=== PATIENT | female | born 1955 | race Caucasian/White ===

== ENCOUNTER 2025-01-24 20:43 | Inpatient (IN) | payer MEDICARE, OTHER, SELFPAY ==
[2025-01-24 15:03] VITALS: BP 165/87
[2025-01-24 15:49] LABS: % Basophils 0.8 % (0-2); % Eosinophils 4.4 % (0-6); % Immature Granulocytes 0.6 % (0-0.5); % Lymphocytes 11.8 % (20.5-51.1); % Monocytes 4.8 % (1.7-9.3); % Neutrophils 77.6 % (42.2-75.2); Absolute Basophils 0.1 10^3/uL (0-0.2); Absolute Eosinophils 0.4 10^3/uL (0-0.7); Absolute Immature Granulocytes 0.1 10^3/uL (0-0.05); Absolute Lymphocytes 0.9 10^3/uL (1.2-3.4); Absolute Monocytes 0.4 10^3/uL (0.1-0.6); Absolute Neutrophils 6.2 10^3/uL (1.4-6.5); Hematocrit 46.3 % (37.0-47.0); Hemoglobin 14.8 g/dL (12.0-16.0); Mean Corpuscular Hgb 29.7 pg (27.0-31.0); Nucleated Red Blood Cells % 0 %; Platelet Count 230 10^3/uL (130-400); Red Blood Cell Count 4.98 10^6/uL (4.20-5.40); Red Cell Dist. Width 14.3 % (11.5-14.5)
[2025-01-24 16:01] LABS: Urine Albumin 3+ (Neg - Trace); Urine Bilirubin 1+ (Negative); Urine Character Slightly Cloudy (Clear); Urine Color Yellow; Urine Glucose Negative (Negative); Urine Ketone Negative (Negative); Urine Leukocyte 3+ (Negative); Urine Nitrite Positive (Negative); Urine Occult Blood 4+ (Negative); Urine Urobilinogen 1+ (Neg - 1+)
[2025-01-24 16:07] LABS: ALT (SGPT) 46 U/L (0-35); AST (SGOT) 26 U/L (14-36); Albumin 3.5 g/dl (3.5-5.0); Alkaline Phosphatase 82 U/L (38-126); Blood Urea Nitrogen 40 mg/dl (7-17); Calcium 10.4 mg/dl (8.4-10.2); Carbon Dioxide 31 mmol/L (22-30); Chloride 101 mmol/L (98-107); Glucose 102 mg/dl (70-99); Lipase 114 U/L (23-300); Sodium 136 mmol/L (135-145); Total Bilirubin 0.5 mg/dl (0.2-1.3); eGFR 40.47
--- NOTE | 2025-01-24 17:25 | ED.GENMED ---
History of Present Illness
General
Chief Complaint: Abdominal Pain
Source: patient
Exam Limitations: none
Time Seen by Provider: 01/24/25 17:24
Nursing documentation reviewed up to this point in time: agreed with
History of Present Illness
History of Present Illness:
69-year-old female presents emergency room complaining of left flank pain and left-sided abdominal pain. Started at 1 PM today. She has been urinating less. She also notes she has had some nausea and some chills since 01/20/2025.
Past History
Past History
ED Past Medical History: Asthma, HTN and Other (Glaucoma)
Social History
Tobacco: Smoker
Alcohol: None
Drug: None
Review of Systems
Review of Systems
Allergies reviewed?: Yes
All Other Systems: Not applicable
Constitutional: Reports chills
EENT: Reports no symptoms
Respiratory: Reports no symptoms
Cardiac: Reports no symptoms
ABD/GI: Reports no symptoms
: Reports no symptoms
Musculoskeletal: Reports no symptoms
Skin: Reports no symptoms
Neurological: Reports no symptoms
Endocrine: Reports no symptoms
Hematologic/Lymphatic: Reports no symptoms
Psychiatric: Reports no symptoms
Phy Exam
Physical Exam
Physical Exam:
Physical Exam
General: no apparent distress, not acutely ill
Neck: supple. no meningeal signs. normal posterior pharynx
Heart: s1/s2 regular rate and rhythm, no murmur. equal radial
pulses.
HEENT: Pupils equal round reactive to light, EOMI
Lungs: no acute respiratory distress. clear bilaterally
Abdomen: normal bowel sounds. not tender. Mild left CVAT
Neuro: alert and oriented. no focal neurological deficits cranial nerves II through XII intact
Skin: no rash
Psychiatric: well kept. interactive and cooperative
Extremities: no edema. no calf tenderness. negative homans. good distal pulses
Course
Orders/Labs/Results
Orders:
Orders
01/24/25 Dinner
NPO
Allow oral meds: Yes
Allow clear liquids: Sips of Clears
NPO
Allow oral meds: No
Allow clear liquids: No
NPO with Ice Chips: No
01/24/25 15:08
Electrocardiogram (*1) Urgent
Reason for Study: Chest Pain
EKG- Treatment ONCE
01/24/25 15:35
Complete Blood Count/With Diff Urgent
Comprehensive Metabolic Panel Urgent
Lipase Urgent
Urinalysis Reflex To Culture Urgent
Date Specimen was Collected: 01/24/25
Time Specimen was Collected: 15:08
Urine Microscopic Reflex Cult Urgent
Urine Culture Urgent
KAREN Source: U
Specimen Description:
Date Specimen was Collected: 01/24/25
Time Specimen was Collected: 15:08
01/24/25 17:35
CT Abd/pel Without Iv Or Oral Urgent
Comment:
Reason For Exam: left flank pain, UTI, hematuria
01/24/25 19:10
Ondansetron Injectable [Zofran] 4 mg .ROUTE .STK-MED ONE
01/24/25 19:11
Morphine Sulfate 4 mg .ROUTE .STK-MED ONE
01/24/25 19:16
Ondansetron Injectable [Zofran] 4 mg IV NOW STA
01/24/25 19:17
Morphine Sulfate 4 mg IV NOW STA
01/24/25 19:25
CefTRIAXone [Rocephin] 1,000 mg IV NOW STA
01/24/25 19:28
Morphine Sulfate 2 mg .ROUTE .STK-MED ONE
01/24/25 19:30
Morphine Sulfate 1 mg IV NOW STA
01/24/25 20:09
0.9% Sodium Chloride 1000 ml [Nss] 1,000 ml IV BOLUS
01/24/25 20:14
Admit/Transfer Patient As Directed
Co-Sign Provider:
Level of Care: Inpatient admission
Assign to:: Medical/Surgical
Physician / Group: gamal
Diagnosis: obstructive ureteral stone
Reason for Hospitalization: obstructive ureteral stone
Expected length of stay greater than two midnights?: Yes
ELOS- Estimated Length of Stay in days: 2
I certify the patient meets the requirements for IP care: Yes
Code Status As Directed
Resuscitation Status: Full Code
PRN Pain Medication Management As Directed
May give lesser potent ordered pain med per pt: Yes
preference::
Protocol:: Medication orders for pain may be administered in a
manner that supports deferring to patient preference
when the pt is:
- Requesting an ordered lesser potent pain medication.
Least to most potent pain medications are defined
as: acetaminophen < NSAID < tramadol < opioids
(morphine, oxycodone, hydromorphone).
- Requesting a lesser dose of the same medication IF
ORDERED.
- Requesting a less intrusive route of administration
if both routes are prescribed by the provider (PO <
IV).
01/24/25 20:30
Acetaminophen [Tylenol] 650 mg PO NOW STA
01/24/25 21:37
0.9% Sodium Chloride 1000 ml [Nss] 1,000 ml IV 100 mls/hr
Acetaminophen [Tylenol] 650 mg PO Q4HPRN PRN
HYDROmorphone [Dilaudid] 0.5 mg IV Q4HPRN PRN
Ondansetron Injectable [Zofran] 4 mg IV Q6HPRN PRN
01/24/25 21:37
UROLOGY CONSULT Routine
Consulting Provider: Landon Benitez Jr.
Was physician already notified: Yes
Activity As Directed
Activity Level: As Tolerated
Pneumatic Compression Sleeves As Directed
Type: Knee high
Vital Signs As Directed
Frequency: Per unit guidelines
DX Deep Vein Thrombosis Video Routine
01/24/25 22:00
CefTRIAXone [Rocephin] 1,000 mg IV Q24H
01/25/25 06:00
Complete Blood Count/With Diff IN AM
Comprehensive Metabolic Panel IN AM
Abnormal Lab Results
01/24/25
15:35
MCHC 32.0 L g/dL
(33.0-37.0)
MPV 11.0 H fL
(7.4-10.4)
Abs Immat Gran (auto) 0.1 H 10^3/uL
(0-0.05)
Absolute Lymphs (auto) 0.9 L 10^3/uL
(1.2-3.4)
Immature Gran % 0.6 H %
(0-0.5)
Neutrophils % 77.6 H %
(42.2-75.2)
Lymphocytes % 11.8 L %
(20.5-51.1)
Carbon Dioxide 31 H mmol/L
(22-30)
BUN 40 H mg/dl
(7-17)
Creatinine 1.4 H mg/dL
(0.6-1.0)
Glucose 102 H mg/dl
(70-99)
Calcium 10.4 H mg/dl
(8.4-10.2)
ALT 46 H U/L
(0-35)
Total Protein 6.0 L g/dl
(6.3-8.2)
Ur Occult Blood Reflex 4+ A
(Negative)
Urine Nitrite (Reflex) Positive A
(Negative)
Urine Bilirubin 1+ A
(Negative)
Leukocyte Esterase Rfl 3+ A
(Negative)
Urine RBC 7-10 A /HPF
(0-2)
Urine WBC (Reflex) >100 A /HPF
(0-5)
Urine Bacteria (Reflex) Many A
(Negative)
Urine Albumin (Reflex) 3+ A
(Neg - Trace)
01/24/25 15:35
01/24/25 15:35
Vital Signs
Initial and Last Documented VS:
Initial Vital Signs
Temp Pulse Resp BP Pulse Ox
97.6 F 76 16 165/87 99
01/24/25 15:03 01/24/25 15:03 01/24/25 15:03 01/24/25 15:03 01/24/25 15:03
Last Documented Vital Signs
Temp Pulse Resp BP Pulse Ox
102.0 F H 103 20 145/73 99
01/24/25 20:26 01/24/25 20:17 01/24/25 20:17 01/24/25 20:17 01/24/25 15:03
MDM/Problems Addressed
Differential Diagnosis Includes:
UTI, kidney stone
MDM/Problems Addressed:
69-year-old female with obstructive left-sided proximal ureteral calculus and UTI. Fever. Discussed with Dr. Benitez, who will take patient to the OR. IV gentamicin and Rocephin given.
Chronic conditions affecting care: HTN and Asthma
*Radiology
Radiology exam reviewed: preliminary read by ED provider (CT abdomen pelvis shows left proximal UVJ calculus 1.5 cm, cyst versus mass left kidney)
*Pulse Oximetry
Patient hypoxic: no
*EKG
Interpreted by ED Provider?: Yes
EKG Intrepretation Date: 01/24/25
EKG Intrepretation Time: 15:21
Interpretation: normal
Comparison EKG: no comparison EKG present
Heart Rate: 72
Rate: normal
Rhythm: sinus
[place]: normal axis
Interval: normal interval
QRS Pattern: normal QRS
Ischemia: no ischemia
*Protozoologist Interpretation
Rate: normal
Interpretation: normal
Heart Rate: 75
Rhythm: sinus
*Critical Care Note
Total Time (30-74mins, 75-104mins- exclusive of procedures): 30
comment:
Critical care statement: A total of 30 minutes of critical care time was provided for this patient. This includes management of unstable vital signs, evaluation of the patient at bedside, reviewing the patient's pertinent medical records, discussion
with consultants, review of old EKGs and review of pertinent medical records. This time with separate from time utilized to perform the aforementioned documented procedures
Patient Management
Social determinants of health affecting care: Living situation, Substance abuse (Tobacco) and Strong social support
Discussion with other providers: Hospitalist and Gsa Coordinator (Urology, Dr. Benitez to take the OR)
Escalation/DeEscalation of care consider admission/obs:
Urgent need for OR for stent
ED Attending Note
-
Portions of this chart may have been created with voice recognition software.� Occasional wrong word or��sound alike� substitutions may have occurred due to the inherent limitations of voice recognition software.
Discharge Plan
Departure
Patient Disposition: OR
Date of Disposition: 01/24/25
Time of Disposition: 20:04
Admit to: OR
Presentation/result/management discussed w/ accepting MD/DO: Hospitalist
Condition: Good
Discharge Problem:
Calculus of proximal left ureter, Acute UTI
Interventions
Interventions:
*Risk Screen - Suicide Last Done: 01/24/25 15:03
*General Assessment Last Done: 01/24/25 19:15
*Neglect/Abuse Screening Last Done: 01/24/25 15:03
ED- Fall Risk Assessment Last Done: 01/24/25 19:34
*ED COVID-19 Vaccine History Last Done: 01/24/25 19:15
JK-Zrpval-Awprsztfui Assessment Last Done: 01/24/25 19:34
[2025-01-24 18:00] VITALS: BP 154/79
[2025-01-24 19:01] LABS: Urine Bacteria Many (Negative); Urine White Cell >100 /HPF (0-5)
[2025-01-24 19:15] VITALS: BMI 36.3
[2025-01-24] MEDS: ZOFRAN 4 MG IV (19:16)
[2025-01-24] MEDS: ROCEPHIN 1000 MG IV (20:05)
[2025-01-24] MEDS: MORPHINE SULFATE 1 MG IV (20:06)
[2025-01-24 20:17] VITALS: BP 145/73
--- NOTE | 2025-01-24 20:19 | HPS.HSE ---
Family Physician
-
Family Physician: Petrona Costa
Chief Complaint
-
left flank pain
History of Present Illness
69-year-old female past medical history of hypertension, COPD, active smoker, presenting with left-sided flank pain, chills, low-grade fever, urinary frequency over the past 5 days. No blood in the urine. No nausea or vomiting. Pain got
particularly severe today.
Denies any prior history of kidney stones urinary tract infections.
Smokes 2 pack of cigarettes per week. Denies alcohol.
Medical History
Past Medical History
Past Medical History: Reports Other ( hypertension, COPD, active smoker,)
Past Surgical History: Reports None
Social History
Tobacco: Smoker
Alcohol: None
Drug: None
Family History
Family History: Not pertinent
Allergies / Home Medications
Allergies reflects when Allergies were last updated in [facility].
Home Medications with original date entered in [facility]
Allergy/Medication List:
Allergies
Allergy/AdvReac Type Severity Reaction Status Date / Time
No Known Allergies Allergy Unverified 01/24/25 15:03
Review of Systems
-
History Source: Patient
A 12 point ROS was completed and negative except as noted: Yes
Constitutional: Reports No Symptoms
EENT: Reports No Symptoms
Respiratory: Reports No Symptoms
Cardiac: Reports No Symptoms
Abdomen/GI: Reports See HPI
: Reports See HPI
Musculoskeletal: Reports No Symptoms
Skin: Reports No Symptoms
Neurological: Reports No Symptoms
Endocrine: Reports No Symptoms
Hematologic/Lymphatic: Reports No Symptoms
Psych: Reports No Symptoms
Physical Exam
Vital Signs
Vital Signs
Temp Pulse Resp BP Pulse Ox
97.6 F 71 16 154/79 99
01/24/25 15:03 01/24/25 18:00 01/24/25 15:03 01/24/25 18:00 01/24/25 15:03
Physical Exam
General: Well Developed, Well Nourished and No Apparent Distress
HEENT: NormoCephalic, Moist mucous membranes and Atraumatic
Respiratory: Clear
Cardiac: S1/S2 and Regular Rhythm; No Murmur or Rub
GI: Soft, Non Tender, Non Distended, Normal Bowel Sounds and Tender (left flank tender ); No Organomegaly
Rectal: Deferred by Provider
Musculoskeletal: No Clubbing, No Cyanosis and No Edema
Skin: No Rash
Neuro: Nonfocal/grossly intact
Laboratory Results
-
01/24/25 15:35
01/24/25 15:35
Laboratory Results
Total Bilirubin 0.5 mg/dl (0.2-1.3) 01/24/25 15:35
AST 26 U/L (14-36) 01/24/25 15:35
ALT 46 U/L (0-35) H 01/24/25 15:35
Alkaline Phosphatase 82 U/L (38-126) 01/24/25 15:35
Lipase 114 U/L (23-300) 01/24/25 15:35
Data Reviewed
-
Lab Data: Labs Reviewed by me
Old Records: Reviewed
Impression/Plan
-
IMPRESSION:
PLAN:
# Obstructive left ureteral stone/pyelonephritis
-1.5 cm ureteropelvic junction stone with moderate right perinephric edema
-Urinalysis indicative of infection
-N.p.o.
-IV fluids
-Ceftriaxone
-Gentamicin dose given
-Dilaudid
-Urology to see urgently
# Acute kidney
-IV fluids
Essential hypertension
-Hold olmesartan/hydrochlorothiazide
COPD
-Continue Breo
Active smoker
Full code
DVT prophylaxis�SCDs
N.p.o.
[2025-01-24] MEDS: TYLENOL 650 MG PO (20:40)
[2025-01-24] MEDS: NSS 1000 IV ×2 (20:40→23:59)
--- NOTE | 2025-01-24 20:55 | CON.MD ---
Consultation - Medical
-
see dictated note
pt presents with abd pain/obstructing left upj stone and fever
reviewed with pt and family
to OR bob for stent placement
risks, benefits, alternatives and disabilities reviewed
[2025-01-24 21:52] VITALS: BP 170/110
[2025-01-24] MEDS: GENTAMICIN 53 MG IV (21:54)
[2025-01-24 22:21] VITALS: BMI 35.9
--- NOTE | 2025-01-24 23:17 | W.IMMPOSTOP ---
Surgical Immed Post Op Note
-
Primary Surgeon:
chas
Assisting Surgeon:
Pre-op Diagnosis:
left ureteral stone/sepsis
Post-op Diagnosis:
same
Procedure Performed:
cysto/left ureteral stent
Anesthesia Type:
gen
Specimen / Cultures:
none
Estimated Blood Loss:
2cc
Complications:
none
Operative Findings:
left ureteral stent placed with roge pus
pt unable to be extubated- to ICU
updated family and med team
[2025-01-24 23:33] VITALS: BP 133/71
[2025-01-24 23:45] VITALS: BP 171/86
[2025-01-24] MEDS: SUBLIMAZE 100 MCG IV (23:59)
[2025-01-25] VITALS (13 sets, daily range): BP systolic 78–129; BP diastolic 50–69; PULSE 2–86; BMI 36.0
[2025-01-25] MEDS: SUBLIMAZE 100 IV (00:02)
[2025-01-25] MEDS: DUONEB 3 ML INH ×4 (00:14→19:50)
[2025-01-25] MEDS: OFIRMEV 100 IV ×2 (00:17→10:24)
--- NOTE | 2025-01-25 00:20 | W.PN.SEPSIS ---
Sepsis
Vital Signs
Temp Pulse Resp BP Pulse Ox
101.9 F H 99 18 170/110 91
01/24/25 21:52 01/24/25 21:52 01/24/25 21:52 01/24/25 21:52 01/24/25 21:52
Physical Exam
Physical Exam:
A focused exam was performed after fluid resuscitation.
Capillary Refill
Bilateral Upper Extremity:
[place] Time: Less than 3 sec
Bilateral Lower Extremity:
[place] Time: Less than 3 sec
Pulse Evaluation
Bilateral Radial:
Pulse Evaluation: Present
Bilateral Dorsalis Pedis:
Pulse Evaluation: Present
[2025-01-25 00:29] LABS: B.E. -1.8 mmol/L; HCO3 24.7 mmol/L (21-28); PCO2 48 mmHg (32-35); PO2 399 mmHg (83-108); pH 7.32 (7.35-7.45)
[2025-01-25 00:30] LABS: O2 Therapy VENT
[2025-01-25] MEDS: NSS 1000 IV ×4 (00:50→21:05)
[2025-01-25] MEDS: SUBLIMAZE 50 MCG IV (00:56)
--- NOTE | 2025-01-25 00:59 | PTCARENOTE ---
Received pt. from OR as a direct back.
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
Upon arrival to ICU, not pulling volumes, settings adjusted to PCMV, tolerating well.
Arroyo CX, CXR completed, Art line placed.
See sedation gtt --> flowsheet.
Uptitrating norepi.
Family bedside all questions answered. Plan of care explained.
[2025-01-25 01:55] LABS: Phosphorus 3.8 mg/dl (2.5-4.5); Triglycerides 169 mg/dl (10-149)
--- NOTE | 2025-01-25 02:11 | PTCARENOTE ---
Pt. belongings placed in closet, Daughter took home pt. stefanoet. Phone left in belongings bag.
[2025-01-25] MEDS: ATIVAN 2 MG IV (02:48)
[2025-01-25 02:58] LABS: Magnesium 1.6 mg/dl (1.6-2.3)
[2025-01-25 03:52] LABS: COVID-19 Antigen Negative (Negative)
--- NOTE | 2025-01-25 04:05 | PTCARENOTE ---
unable to titrate down norepi, Tolerating vent well.
No further change in assessment.
[2025-01-25 05:08] LABS: B.E. -4.3 mmol/L; HCO3 18.8 mmol/L (21-28); O2 Saturation % 99.8 % (94-98); PCO2 29 mmHg (32-35); PO2 140 mmHg (83-108); pH 7.42 (7.35-7.45)
[2025-01-25 05:09] LABS: O2 Therapy VENT
[2025-01-25 05:24] LABS: INR 1.05
[2025-01-25 05:25] LABS: APTT 33.7 Sec (23.4-35.0)
[2025-01-25] MEDS: DIPRIVAN 100 IV ×3 (05:34→08:57)
[2025-01-25] MEDS: LEVOPHED 250 IV (05:34)
--- NOTE | 2025-01-25 05:46 | W.PN.URO.CBU ---
Today's Communication / Plan
-
ICU care
Assessment / Plan
-
obstructing left ureteral stone and sepsis
unable to extubate post op
remains critically ill
continue antibx and supportive care
await cx results
wean vent as able
Diagnosis
-
Date of Service: January 25, 2025
-
Patient Diagnosis:
obstructing left ureteral stone and sepsis
Post Op Day:
left ureteral stent 01/24
Subjective
-
pt remains intubated
febrile
on levo
Objective
-
Vital Signs
Temp Pulse Resp BP Pulse Ox
100.7 F H 76 24 121/59 98
01/25/25 03:15 01/25/25 03:32 01/25/25 03:32 01/25/25 01:15 01/25/25 04:00
Intake and Output
01/23/25 01/24/25 01/25/25
06:59 06:59 06:59
Intake Total 3666.5 / 3666.5
Output Total 520 / 520
Balance 3146.5 / 3146.5
Intake:
Oral fluids 0 / 0
IV fluids (Total) 666.5 / 666.5
Diprivan 85 / 85
Fentanyl 17.5 / 17.5
Norepi 164 / 164
Nss 1,000 ml @ 100 mls/hr IV . 400 / 400
Q10H ZOYA Rx#:[id number]
IV piggybacks 3000 / 3000
Output:
Urine, Downs 520 / 520
Review of Systems
-
Unable to obtain full review of systems at this time due to: Patient Intubation
Physical Exam
-
General - intubated
Abdomen - soft, non-tender
Genitalia - downs in place
[2025-01-25 06:09] LABS: ALT (SGPT) 54 U/L (0-35); AST (SGOT) 31 U/L (14-36); Alkaline Phosphatase 98 U/L (38-126); Blood Urea Nitrogen 33 mg/dl (7-17); Carbon Dioxide 18 mmol/L (22-30); Chloride 106 mmol/L (98-107); Estimated Creatinine Clearance 39 ml/min; Glucose 232 mg/dl (70-99); Magnesium 1.6 mg/dl (1.6-2.3); Potassium 4.3 mmol/L (3.5-5.1); Sodium 134 mmol/L (135-145); Total Bilirubin 1.1 mg/dl (0.2-1.3); Total Protein 5.3 g/dl (6.3-8.2); eGFR 40.47
[2025-01-25 06:19] LABS: Hemoglobin 13.4 g/dL (12.0-16.0); Mean Corp Hgb Conc. 32.7 g/dL (33.0-37.0); Mean Corpuscular Hgb 29.3 pg (27.0-31.0); Mean Corpuscular Volume 89.7 fL (81.0-99.0); Mean Platelet Volume 11.3 fL (7.4-10.4); Platelet Count 294 10^3/uL (130-400); Red Blood Cell Count 4.57 10^6/uL (4.20-5.40); Red Cell Dist. Width 14.6 % (11.5-14.5); White Blood Cell Count 27.7 10^3/uL (4.8-10.8)
--- NOTE | 2025-01-25 07:30 | PTCARENOTE ---
Received patient from table games shift manager. patient is intubated/sedated, RASS is -3, will decrease sedation medications. patient is restrained, bilateral wrist restraints, does attempt to reach towards ETT when aroused, otherwise not following any
commands. She has a #7ETT, ag 23cm at lip, no subglottic suction tube, oral secretions suctioned. oxygen saturation 99%. coarse breath sounds auscultated. She is sinus nilda/sinus rhythm on monitor. levophed gtt at 4mcg, radial A-Line
correlating with cuff pressure for MAP>65. Patient is NPO, has downs catheter without urimeter. SKin is intact. Propofol, and fentanyl as charted. Will review orders, maintaining safe environment.
[2025-01-25 07:54] LABS: % Basophils 0.3 % (0-2); % Lymphocytes 3.7 % (20.5-51.1); % Monocytes 6.4 % (1.7-9.3); % Neutrophils 88.6 % (42.2-75.2); Absolute Basophils 0.1 10^3/uL (0-0.2); Absolute Immature Granulocytes 0.3 10^3/uL (0-0.05); Absolute Monocytes 1.8 10^3/uL (0.1-0.6); Absolute Neutrophils 24.5 10^3/uL (1.4-6.5); Nucleated Red Blood Cells % 0 %
--- NOTE | 2025-01-25 09:11 | CON.HOSP ---
Consultation
-
Date/Time Consultation Requested: 01/25/25
Date/Time Consultation Performed: 01/25/25
Family Physician
-
Family Physician: Petrona Costa
Chief Complaint
-
Septic shock requiring pressors and intubation
History of Present Illness
Patient is a 69-year-old female active smoker with past medical history significant for COPD, hypertension, hyperlipidemia and obesity who presented to the ED complaining of left flank pain x1 day, reduced urinary output, nausea and chills x5 days.
In the ED, UA was suggestive of infection, creatinine 1.4, wbc normal. Abdomen/pelvis CT showed moderate acute left hydronephrosis secondary to a large 1.5 cm obstructing calculus in the left ureteropelvic junction, and severe left perinephric
inflammation. Patient was given ceftriaxone, 1 L normal saline, Zofran morphine. Patient spiked a fever of 102 F while in the ED and was SIRS positive at that time. Urology was consulted and patient was taken to the OR for left ureteral stent
placement (01/24/2025). Patient went into respiratory distress before start of anesthesia, and septic shock intraoperatively requiring vasopressor support. Postop, she was kept intubated and transferred to the ICU for further management.
Patient follows with with her primary care physician in [place] for her COPD and uses Breo Ellipta at home daily.
Medical History
Past Medical History
Past Medical History: Reports COPD, HTN and Hypercholesterolemia
Additional Past Medical History:
Obesity
Past Surgical History: Reports None
Social History
Unable to obtain full social history at this time due to: Patient Intubation
Tobacco: Smoker (2 packs of cigarettes per week)
Personal:
Living: With Family
Allergies / Home Medications
Allergies reflects when Allergies were last updated in [facility].
Home Medications with original date entered in [facility]
Allergy/Medication List:
Allergies
Allergy/AdvReac Type Severity Reaction Status Date / Time
No Known Allergies Allergy Unverified 01/24/25 15:03
Home Medications
fluticasone furoate 200 mcg-vilanterol 25 mcg/dose inhalation powder (Breo Ellipta) 1 inh inhalation DAILY 01/24/25
olmesartan 40 mg-hydrochlorothiazide 25 mg tablet 1 tab PO DAILY 01/24/25
rosuvastatin 10 mg tablet 10 mg PO HS 01/24/25
Review of Systems
-
Unable to obtain full review of systems at this time due to: Patient Intubation
History Source: Family and Physician
Physical Exam
Vital Signs
Vital Signs
Temp Pulse Resp BP Pulse Ox
97.7 F 60 24 121/59 98
01/25/25 07:23 01/25/25 07:45 01/25/25 07:45 01/25/25 01:15 01/25/25 08:10
Physical Exam
General: Well Developed, Well Nourished, No Apparent Distress, Comfortable, Fever (n) and Intubated
HEENT: Normocephalic and Other (Mechanically ventilated)
Respiratory: Clear and Non Labored Respirations
Cardiac: S1/S2, Regular Rhythm, Murmur (n), Peripheral Edema and JVD (n)
GI: Soft, Non Tender, Non Distended and Normal Bowel Sounds
Musculoskeletal: No Clubbing, No Cyanosis and Edema (Pitting edema on bilateral lower extremities, right greater than left)
Skin: Warm
Neuro: Sedated
Psych: Calm
Laboratory Results
-
Laboratory Results
01/25/25 05:00
01/25/25 05:00
PT 14.0 Sec (11.4-14.6) 01/25/25 05:00
INR 1.05 01/25/25 05:00
APTT 33.7 Sec (23.4-35.0) 01/25/25 05:00
pH 7.42 (7.35-7.45) 01/25/25 05:00
pCO2 29 mmHg (32-35) L 01/25/25 05:00
pO2 140 mmHg (83-108) H 01/25/25 05:00
HCO3 18.8 mmol/L (21-28) L 01/25/25 05:00
Total Bilirubin 1.1 mg/dl (0.2-1.3) 01/25/25 05:00
AST 31 U/L (14-36) 01/25/25 05:00
ALT 54 U/L (0-35) H 01/25/25 05:00
Alkaline Phosphatase 98 U/L (38-126) 01/25/25 05:00
Lipase 114 U/L (23-300) 01/24/25 15:35
Data Reviewed
-
Diagnostic Radiology: Image personally visualized and interpreted and Report Reviewed by Me
CT Scan: Image personally visualized and interpreted and Report Reviewed by Me
Lab Data: Labs Reviewed
Impression / Plan
-
IMPRESSION:
69-year-old active smoker female with past medical history of COPD, hypertension, hyperlipidemia, obesity presenting with complicated UTI and left UPJ calculus status post left stent placement, with septic shock requiring pressor support and
intubation.
# Septic shock
- Likely secondary to complicated UTI. Patient was started on ceftriaxone in the ED. Urine culture and blood culture are pending.
- Patient required pressor support intraoperatively and was kept intubated postop. Currently, she is on 2 mcg Levophed. Pressures are stable with MAPs consistently greater than 75.
- Ventilator settings: PEEP 5, FiO2 40%, rate 24. Patient looks comfortable and is satting in the high 90s.
- Abdomen pelvic CT (01/24/2025):
Moderate acute left hydronephrosis secondary to a large 1.5 cm obstructing calculus at the left ureteropelvic junction. Severe left perinephric inflammation.
Mild to moderate right perinephric edema. 1.0 cm mass in the posterior cortex of the midpole of the right kidney which could be a complex cyst or small renal cell carcinoma.
- Patient should follow-up outpatient with nephrology for right kidney mass.
# Hyperglycemia
- Likely steroid-induced
- Patient does not have a known history of diabetes.
# Leukocytosis
- Probably in the setting of sepsis and steroids
#Hypomagnesemia
# MEGHAN
- Creatinine 1.4 in the ED.
- Likely due to postrenal obstruction.
Conditions present prior to admission:
Hypertension -- Home meds currently on hold
Hyperlipidemia
Obesity
COPD
PLAN:
Sedated on fentanyl and propofol. Does not currently follow commands. Will try SAT today.
Patient is not complaining of any pain. As needed Tylenol is ordered.
Patient is intubated and mechanically ventilated. ABG 7.40 /140/18.8. FiO2 40%, PEEP 5. O2 sats >98%. Will try SBT and if tolerating, extubation today. Maintain SpO2 >92%.
Patient has a history of COPD. Lungs clear, continue DuoNebs. Chest x-ray today showed mild left basilar atelectasis versus pneumonia.
Hemodynamically stable, on low-dose Levophed. Wean pressors as able.
Patient has a history of hypertension, home meds are on hold.
Diet is n.p.o. Can consider advancing diet later today if extubated. Continue IV fluids for now.
Creatinine is elevated at 1.4 (baseline unclear). Urine output is low (600 cc). Burgess in place, status post left stent placement, continue to monitor I/O's, weight.
Replete magnesium as needed.
Patient is on IV ceftriaxone for pyelonephritis. Urine culture and blood culture pending.
White count is elevated at 27.7. Patient received dexamethasone in the OR yesterday. Continue to monitor counts.
DVT prophylaxis heparin SQ every 8.
Hyperglycemia, likely steroid-induced. Will start sliding scale insulin. Check HbA1c and Accu-Cheks every 6 hours. Maintain euglycemia with goal BG 140-180.
Patient's family at the bedside. Discussed treatment plans and answered all questions.
--- NOTE | 2025-01-25 09:46 | W.PN.HOSP.TC ---
Today's Communication/Plan
-
Possible transfer out of ICU today
Assessment / Plan
Assessment / Plan
HPI: 69-year-old female past medical history of hypertension, COPD, active smoker, presenting with left-sided flank pain, chills, low-grade fever, urinary frequency over the past 5 days. No blood in the urine. No nausea or vomiting. Pain got
particularly severe today.
#Acute left ureterolithiasis with obstruction
#Sepsis secondary to acute left pyelonephritis
Appreciate urology input, status post cystoscopy with left ureteral stent placement 01/24
Continue Rocephin, follow-up on cultures, trend fever and white count
#Unable to extubate postoperatively
Appreciate mounter saxophones input, extubated 01/25
Patient likely has undiagnosed COPD, KATELYN, and possibly OHS
Continue bronchodilators, follow-up with pulmonology in the office for PFTs and sleep study
#Glucose intolerance
Hemoglobin A1c 5.9, recommend dietary modification
#Cigarette nicotine dependency
Nicotine patch
#Essential hypertension
Hold home blood pressure medications, patient is normotensive
#Hyperlipidemia
Resume statin
DVT prophylaxis�subcu Lovenox
Full code
Updated family at bedside 01/25
Total time spent to see the patient on the floor, examine the patient, review data and lab results, discuss treatment plan with patient, nursing staff around 51 minutes.
Physical Exam
General: Obese, no acute distress
HEENT: Normocephalic, Atraumatic, EOMI, MMM
Respiratory: Clear to Auscultation bilaterally
Cardiac: Normal S1/S2, Regular Rate and Rhythm
GI: Soft, Nontender, Nondistended, Normal Bowel Sounds
Extremities: No Clubbing, Cyanosis, or Edema
Neuro: Nonfocal/Grossly Intact
Psych: Calm, Cooperative
Derm: No Visible lesions
Anticipated Discharge: 24 - 48 hours
Subjective/Interval History
-
Date of Service: January 25, 2025
Patient denies pain. Denies shortness of breath. Fever improved. No vomiting.
Objective Data
-
Labs:
Laboratory Results
01/24/25 01/25/25 01/25/25
23:19 00:07 05:00
WBC 27.7 H
Hgb 13.4
Hct 41.0
Plt Count 294 D
PT 14.0
INR 1.05
APTT 33.7
HCO3 Cancelled 24.7 18.8 L
Sodium 134 L
Potassium 4.3
Chloride 106
Carbon Dioxide 18 L
BUN 33 H
Creatinine 1.4 H
Glucose 232 H
Calcium 9.0
Total Bilirubin 1.1
AST 31
ALT 54 H
Alkaline Phosphatase 98
Vital Signs:
Vital Signs
Temp Pulse Resp BP Pulse Ox
97.7 F 60 24 121/59 98
01/25/25 07:23 01/25/25 07:45 01/25/25 07:45 01/25/25 01:15 01/25/25 08:10
I&O
01/24/25 01/25/25 01/26/25
06:59 06:59 06:59
Intake Total 3808.5 / 3950.5 382.6 / 382.6
Output Total 620 / 620 200 / 200
Balance 3188.5 / 3330.5 182.6 / 182.6
--- NOTE | 2025-01-25 10:43 | CM ---
CM following re: discharge planning.
Discussed in Rounds, reviewed pt's chart, met with pt. Pt's two daughters and son in law at bedside.
Pt is a 69 year old female, admitted with primary dx of obstructing left ureteral stone and sepsis, unable to extubate post op. Per Rounds meeting pt remains intubated, plan to extubate today, continue supportive care.
Per daughters, pt livers alone in a 2SH, 1 step to enter, has 3 supportive children. Per daughter, pt is independent in functional ability [employer]. No DME, VN or SNF history. Per daughters, pt moved to [place] 1 year ago, lived in [place] prior.
PT and OT will evaluate the pt to determine a level of care at discharge.
PCP: Petrona Costa
Pharmacy: [facility]
D/C plan: most likely home with anticipated no needs vs VN if indicated.
CM will follow with discharge plan updates as hospitalization progresses
[2025-01-25 11:04] LABS: B.E. -2.9 mmol/L; HCO3 23.7 mmol/L (21-28); O2 Saturation % 99.5 % (94-98); PCO2 47 mmHg (32-35); PO2 124 mmHg (83-108); pH 7.31 (7.35-7.45)
[2025-01-25 11:15] LABS: Lactic Acid 1.3 mmol/L (0.7-2.0)
[2025-01-25] MEDS: NICODERM TRANSDERMAL 7 MG TRANSDERM (12:00)
[2025-01-25] MEDS: MAGNESIUM SULFATE 50 IV (12:00)
--- NOTE | 2025-01-25 12:26 | PTCARENOTE ---
Patient extubated to bipap, no complaints of pain. restraints removed, family present at bedside. nicotene patch applied to left upper arm.
[2025-01-25 12:54] LABS: Glucose - Point of Care 99 mg/dl (70-99)
[2025-01-25] MEDS: PROTONIX IV 40 MG IV (12:56)
[2025-01-25] MEDS: NSS (PRESERVATIVE FREE) 10 ML IV (12:57)
[2025-01-25 13:33] LABS: Glycohemoglobin (HgbA1c) 5.9 % (4.0-5.6)
[2025-01-25 14:08] LABS: B.E. -3.2 mmol/L; HCO3 22.7 mmol/L (21-28); O2 Saturation % 97.8 % (94-98); PCO2 43 mmHg (32-35); PO2 86 mmHg (83-108); pH 7.33 (7.35-7.45)
[2025-01-25 17:08] LABS: Glucose - Point of Care 121 mg/dl (70-99)
[2025-01-25] MEDS: LOVENOX 30 MG SC (18:25)
[2025-01-25] MEDS: SYMBICORT 160/4.5 MCG INHALER 2 PUFF INH (19:50)
[2025-01-25] MEDS: ROCEPHIN 1000 MG IV (21:04)
[2025-01-25] MEDS: STERILE WATER FOR INJECTION 10 ML IV (21:04)
--- NOTE | 2025-01-25 21:30 | PTCARENOTE ---
Pt alert and orientedX3, cooperative. Turns self in bed when prompted. Afebrile. NSR. BP 100s/50s. Pulses palpable, IV line flushed/patent. Bipap attempted tonight. Pt not able to tolerate and says 'I'm fine'. Pt educated on importance of wearing
the mask at HS. 2L nc at this time. Tolerating diet. Burgess maintained, draining yellow urine with sediment. Will monitor.
[2025-01-26] VITALS (11 sets, daily range): BP systolic 82–133; BP diastolic 46–72; PULSE 2–93; O2SAT 94; BMI 38.0
[2025-01-26] MEDS: NSS 1000 IV ×2 (04:00→07:33)
[2025-01-26] MEDS: TYLENOL 650 MG PO ×2 (05:39→17:53)
[2025-01-26] MEDS: DUONEB 3 ML INH ×4 (05:47→19:14)
[2025-01-26 05:57] LABS: Venous Blood Gas HCO3 24.8 mmol/L (22-27); Venous Blood Gas pCO2 45 mmHg (35-48); Venous Blood Gas pH 7.35 (7.32-7.43); Venous Blood Gas pO2 154 mmHg (30-50)
[2025-01-26 05:58] LABS: Venous Blood Gas O2 Therapy 2L/min
[2025-01-26 06:33] LABS: Blood Urea Nitrogen 26 mg/dl (7-17); Calcium 8.4 mg/dl (8.4-10.2); Carbon Dioxide 24 mmol/L (22-30); Chloride 106 mmol/L (98-107); Estimated Creatinine Clearance 49 ml/min; Glucose 95 mg/dl (70-99); Magnesium 2.2 mg/dl (1.6-2.3); Sodium 136 mmol/L (135-145); eGFR 54.06
[2025-01-26 06:45] LABS: Hematocrit 36.1 % (37.0-47.0); Hemoglobin 11.8 g/dL (12.0-16.0); Mean Corp Hgb Conc. 32.7 g/dL (33.0-37.0); Mean Corpuscular Hgb 29.9 pg (27.0-31.0); Mean Corpuscular Volume 91.6 fL (81.0-99.0); Mean Platelet Volume 12.1 fL (7.4-10.4); Platelet Count 223 10^3/uL (130-400); Red Blood Cell Count 3.94 10^6/uL (4.20-5.40); Red Cell Dist. Width 14.9 % (11.5-14.5)
[2025-01-26] MEDS: NICODERM TRANSDERMAL 7 MG TRANSDERM (07:33)
--- NOTE | 2025-01-26 07:44 | PTCARENOTE ---
Dr. Benitez in to see patient, patient will have downs in till tomorrow, may get up and OOB. tele status.
--- NOTE | 2025-01-26 07:47 | W.PN.URO.CBU ---
Today's Communication / Plan
-
continue antibx
advance activity and puml toilet
downs out tomorrow
Assessment / Plan
-
obstructing left ureteral stone and sepsis
now extubated and looks good
pulm toilet/wean oxygen
continue antibx- await cx's (surprised that blood cx neg- but await ucx)
continue downs today- will remove tomorrow
eventual plan for outpt ureteroscopy reviewed
Diagnosis
-
Date of Service: January 26, 2025
-
Patient Diagnosis:
obstructing left ureteral stone and sepsis
Post Op Day:
left ureteral stent 01/24
Subjective
-
pt in icu- but extubated and looks much better
off pressors/ HD stable
urine clear
no fevers/ wbc and lactic acid down
blood cx's neg to date/ ucx pending
Objective
-
Vital Signs
Temp Pulse Resp BP Pulse Ox
98.5 F 88 27 82/52 93
01/26/25 00:00 01/26/25 07:30 01/26/25 07:30 01/26/25 00:52 01/26/25 07:40
Intake and Output
01/25/25 01/26/25 01/27/25
06:59 06:59 06:59
Intake Total 3808.5 / 3950.5 2990.1 / 3540.1 550 / 550
Output Total 620 / 620 2700 / 2700
Balance 3188.5 / 3330.5 290.1 / 840.1 550 / 550
Intake:
Oral fluids 0 / 0 450 / 900 450 / 450
IV fluids (Total) 808.5 / 950.5 2490.1 / 2590.1 100 / 100
Diprivan 107 / 129 40.6 / 40.6
Fentanyl 22.5 / 27.5 12.5 / 12.5
Norepi 179 / 194 37.0 / 37.0
Nss 1,000 ml @ 100 mls/hr IV . 500 / 600 2400 / 2500 100 / 100
Q10H ZOYA Rx#:[id number]
IV piggybacks 3000 / 3000 50 / 50
Output:
Urine, Downs 620 / 620 1850 / 1850
Urine, Voided 850 / 850
Laboratory Results
01/26/25 05:45
01/26/25 05:45
Review of Systems
-
Constitutional: Fatigue
Respiratory: Cough
Cardiac: No Symptoms
Abdomen/GI: No Symptoms
: Other (downs)
Physical Exam
-
General - no acute distress
Genitalia - downs
[2025-01-26] MEDS: SYMBICORT 160/4.5 MCG INHALER 2 PUFF INH ×2 (08:40→19:14)
[2025-01-26 08:48] LABS: Glucose - Point of Care 137 mg/dl (70-99)
--- NOTE | 2025-01-26 09:19 | W.PN.HOSP.TC ---
Today's Communication/Plan
-
see bold
Assessment / Plan
Assessment / Plan
HPI: 69-year-old female past medical history of hypertension, COPD, active smoker, presenting with left-sided flank pain, chills, low-grade fever, urinary frequency over the past 5 days. No blood in the urine. No nausea or vomiting. Pain got
particularly severe today.
#Acute left ureterolithiasis with obstruction
#Sepsis secondary to acute left pyelonephritis
Appreciate urology input, status post cystoscopy with left ureteral stent placement 01/24
Continue Rocephin, follow-up on cultures, trend fever and white count
Burgess to be removed tomorrow, 01/27
#Unable to extubate postoperatively
Appreciate break and load operator input, extubated 01/25
Patient likely has undiagnosed COPD, KATELYN, and possibly OHS
Currently requiring 2 L of oxygen, wean as tolerated
Continue bronchodilators, follow-up with pulmonology in the office for PFTs and sleep study
#Glucose intolerance
Hemoglobin A1c 5.9, recommend dietary modification
#Cigarette nicotine dependency
Nicotine patch
#Essential hypertension
Hold home blood pressure medications, patient is normotensive
#Hyperlipidemia
Resumed statin
#Obesity due to excess calories
Affects all aspects of care
DVT prophylaxis�subcu Lovenox
Full code
Updated family at bedside 01/26
Total time spent to see the patient on the floor, examine the patient, review data and lab results, discuss treatment plan with patient, nursing staff around 41 minutes.
Physical Exam
General: Obese, no acute distress
HEENT: Normocephalic, Atraumatic, EOMI, MMM
Respiratory: Clear to Auscultation bilaterally
Cardiac: Normal S1/S2, Regular Rate and Rhythm
GI: Soft, Nontender, Nondistended, Normal Bowel Sounds
Extremities: No Clubbing, Cyanosis, or Edema
Neuro: Nonfocal/Grossly Intact
Psych: Calm, Cooperative
Derm: No Visible lesions
Anticipated Discharge: Within 24 hours
Subjective/Interval History
-
Date of Service: January 26, 2025
Patient feels better today. Denies pain. Has labored breathing. No fever, no vomiting.
Objective Data
-
Labs:
Laboratory Results
01/26/25
05:45
WBC 16.0 H
Hgb 11.8 L
Hct 36.1 L
Plt Count 223 D
Sodium 136
Potassium 4.0
Chloride 106
Carbon Dioxide 24
BUN 26 H
Creatinine 1.1 H
Glucose 95
Calcium 8.4
Vital Signs:
Vital Signs
Temp Pulse Resp BP Pulse Ox
98.1 F 93 21 82/52 91
01/26/25 07:35 01/26/25 08:46 01/26/25 08:46 01/26/25 00:52 01/26/25 08:46
I&O
01/25/25 01/26/25 01/27/25
06:59 06:59 06:59
Intake Total 3808.5 / 3950.5 2990.1 / 3540.1 650 / 650
Output Total 620 / 620 2700 / 2700
Balance 3188.5 / 3330.5 290.1 / 840.1 650 / 650
[2025-01-26 12:17] LABS: Glucose - Point of Care 142 mg/dl (70-99)
--- NOTE | 2025-01-26 12:30 | W.PN.PUL3 ---
Today's Communication / Plan
-
Abx
Follow up UCx (growing GNR)
Start mucinex and flutter valve
Check home O2 assessment prior to discharge
CM consult to get pt a neb machine for home use with Duonebs q4-6 hr prn SOB/wheezing
Continue Symbicort while hospitalized --> resume Breo upon discharge
Pt took off the BiPAP overnight --> blood gas this AM shows stable pH and pCO2
Outpatient evaluation with full PFTs and discussion of sleep disordered breathing
Pulmonary service will now sign off. Please call back with any questions or concerns. Thank you for allowing us to be involved in the care of this patient.
Assessment
-
Impression:
#Septic shock due to stone related UTI- shock state now resolved as of yesterday
#Complicated UTI/left pyelonephritis with an obstructive 1.5 cm calculus at the left UPJ with acute hydronephrosis
#Increased absolute eosinophil count of 400 on 01/24/2025 possibly related to history of asthma
#Acute respiratory failure with hypoxia + hypercapnia
#Ventilator dependent respiratory failure --> intubated while in OR on 01/24 + extubated as of 01/25/2025
#Mild hyponatremia - resolved
#Metabolic acidosis with preserved anion gap - resolved
#MEGHAN - improving
#Hyperglycemia (HbA1c: 5.9 on 01/21/2025) - normalized
#1cm mass in the posterior cortex of the right kidney which could be a complex cyst versus small renal cell carcinoma
#Tobacco use disorder
#Suspected COPD (while intubated, continuous capnography showed a shark fin morphology)
#At increased risk of KATELYN/OHS
Plan:
- Pt was successfully extubated on 01/25/2025 to bipap, and is now on nasal cannula and breathing comfortably, albeit still feels SOB with activity
- Recommend to check ambulatory pulse oximetry prior to discharge to assess O2 need
- Will send home with nebulizer --> CM consult placed
- Keep SpO2 >90-94%
- She takes Breo at home and I resumed Symbicort during hospitalization --> can resume Breo upon discharge
- prn nebulized bronchodilators - not currently bronchospastic
- Continue DuoNebs TID
- Aspiration precautions, keep HOB >30-45�
- Recommend outpatient PFTs
- Nicotine patch
- Continue with BiPAP with sleep, VBG checked this AM shows stable pH and pCO2; outpatient evaluation for discussion of sleep disordered breathing
- Start mucinex and flutter valve
- Patient off pressors since yesterday
- Maintain MAP>65
- Replete electrolytes with K>4, Mg>2
- Lactate checked and is WNL at 1.3
- Continue with ceftriaxone and follow-up blood + urine cultures
- UCx growing GNR --> follow up species and sensitivities
- Trend WBC and monitor for fevers
- Outpatient evaluation with urology regarding this 1 cm mass in the right kidney concerning for a cyst versus RCC
- Renally dose all meds/Abx
- Trend UOP, sCr and monitor I/O
- Maintain euglycemia with goal BG 140-180
- Trend H/H and transfuse if needed to keep Hb>7g/dL; keep plt>20k, unless there is concern for bleeding then keep plt>50k
- Incentive spirometer encouraged 10x per hour for at least 4 hrs a day
- DVT ppx: LMWH; if CrCl declines the would change to HSQ
Will arrange for outpatient pulmonary office follow-up.
Pulmonary service will now sign off. Please call back with any questions or concerns. Thank you for allowing us to be involved in the care of this patient.
Data:
CT A/P 01/24/2025:
1. MODERATE ACUTE LEFT HYDRONEPHROSIS secondary to a large 1.5 cm obstructing calculus in the left ureteropelvic junction. Severe left perinephric inflammation.
2. Mild to moderate right perinephric edema. 1.0 cm mass in the posterior cortex of the midpole of the right kidney which could be a complex cyst or small renal cell carcinoma.
3. Severe calcific atherosclerotic plaque in the abdominal aorta.
4. Mild splenomegaly.
5. Moderate-sized paraesophageal hiatal hernia.
6. Mild colonic diverticulosis.
7. Severe multilevel lumbar facet joint arthrosis.
Total time spent today was 36 minutes for this encounter. Time includes reviewing laboratory test/imaging results, reviewing pertinent medical records, obtaining and reviewing medical history, performing an appropriate exam, ordering medications,
tests and procedures. Time also includes documentation of this encounter, coordinating patient care and communicating with other healthcare professionals. Total time does not include separately billed tests performed on this date of service.
Subjective Data
-
Date of Service:
Date of Service: January 26, 2025
Chief Complaint: Pulmonary Follow Up
Subjective:
Pt seen earlier today - late note entry. She is doing well, still feeling SOB and has phlegm she is making, has difficult time coughing it out. She knows she has to quit smoking. She denies chest pain, JUAN, abd pain, N/V/f/c.
Review of Systems
General: Other (negative unless mentioned above)
Objective Data
Data Reviewed
Vital Signs / I&O / Oxygen:
Vital Signs
Temp Pulse Resp BP Pulse Ox
98.1 F 93 21 82/52 91
01/26/25 07:35 01/26/25 08:46 01/26/25 08:46 01/26/25 00:52 01/26/25 08:46
Intake and Output
01/25/25 01/26/25 01/27/25
06:59 06:59 06:59
Intake Total 3808.5 / 3950.5 2990.1 / 3540.1 650 / 650
Output Total 620 / 620 2700 / 2700
Balance 3188.5 / 3330.5 290.1 / 840.1 650 / 650
SaO2 [P-A/C] 99
SaO2 91
Nasal Cannula flow liters per 2
minute
Physical Exam
General: Respiratory Distress (negative), Comfortable, Chills (negative) and Sweats (negative)
HEENT: Normocephalic, Anicteric and Other (thick neck)
Cardiovascular: S1-S2, Murmur (BRIDGET heard across precordium), Rub (negative) and Peripheral Edema (Trace LE edema b/l)
Respiratory: Wheeze (negative), Crackles (Right hemithorax), Rhonchi (negative), Non-Labored Respirations and Stridor (negative)
GI: Soft, Distended (abdominal obesity), Non Tender and Normal Bowel Sounds
Neurology: AO x 3 and Tremors (negative)
Skin: Warm, Dry, Cyanosis (negative) and Jaundice (negative)
Labs/Micro/Reports
Lab Data
01/26/25 05:45
01/26/25 05:45
Laboratory Results
01/25/25 01/25/25 01/25/25
10:49 13:15 13:50
pH 7.31 L Cancelled 7.33 L
pCO2 47 H Cancelled 43 H
pO2 124 H Cancelled 86
HCO3 23.7 Cancelled 22.7
O2 Delivery Level Cancelled
Microbiology
01/25/25 00:51 Blood/Venous Blood Culture - Preliminary
No Growth in 24 hours- Final report to follow
01/25/25 00:51 Blood/Venous Blood Culture - Preliminary
No Growth in 24 hours- Final report to follow
01/25/25 00:52 Nasal Swab Influenza Types A & B (CLAUDETTE) - Final
Negative for Influenza A & B, NAAT
Negative results must be combined with clinical observations
and patient history.
Nucleic Acid Amplification test (NAAT)performed on the
[employer] platform.
--- NOTE | 2025-01-26 13:11 | PTCARENOTE ---
tranferred patient to [facility]. report given to [facility].
[2025-01-26] MEDS: DUONEB INH (13:22)
[2025-01-26] MEDS: LOVENOX 30 MG SC (17:53)
[2025-01-26] MEDS: ROCEPHIN 1000 MG IV (20:07)
[2025-01-26] MEDS: STERILE WATER FOR INJECTION 10 ML IV (20:07)
[2025-01-26] MEDS: MUCINEX 1200 MG PO (21:39)
[2025-01-26] MEDS: TUMS CHEWABLE TABLET 200 MG PO (22:22)
[2025-01-26] MEDS: NSS IV (22:24)
[2025-01-27] MEDS: TYLENOL 650 MG PO ×3 (02:07→20:41)
[2025-01-27 03:33] VITALS: BP 132/71
[2025-01-27 07:10] VITALS: BP 138/74
--- NOTE | 2025-01-27 07:19 | W.PN.HOSP.TC ---
Today's Communication/Plan
-
Await sensitivities for Proteus
Plan for discharge tomorrow
Assessment / Plan
Assessment / Plan
HPI: 69-year-old female past medical history of hypertension, COPD, active smoker, presenting with left-sided flank pain, chills, low-grade fever, urinary frequency over the past 5 days. No blood in the urine. No nausea or vomiting. Pain got
particularly severe today.
#Acute left ureterolithiasis with obstruction
#Sepsis secondary to acute left pyelonephritis
Appreciate urology input, status post cystoscopy with left ureteral stent placement 01/24
Urine cultures growing E. coli and Proteus, E. coli sensitivities reviewed
Continue Rocephin, plan for discharge tomorrow after sensitivities for Proteus return
Burgess removed 01/27, patient has been voiding
#Constipation
Laxatives, milk of magnesia
#Unable to extubate postoperatively
Appreciate home inspector input, extubated 01/25
Patient likely has undiagnosed COPD, KATELYN, and possibly OHS
Currently requiring 2 L of oxygen, wean as tolerated
Continue bronchodilators, follow-up with pulmonology in the office for PFTs and sleep study
#Acute kidney injury
Resolving
#Glucose intolerance
Hemoglobin A1c 5.9, recommend dietary modification
Patient has been informed of her diagnosis a few weeks ago by her PCP
#Cigarette nicotine dependency
Nicotine patch
#Essential hypertension
Hold home blood pressure medications due to MEGHAN
#Hyperlipidemia
Resumed statin
#Obesity due to excess calories
Affects all aspects of care
DVT prophylaxis�subcu Lovenox
Full code
Updated family at bedside 01/26
Total time spent to see the patient on the floor, examine the patient, review data and lab results, discuss treatment plan with patient, nursing staff around 51 minutes.
Physical Exam
General: Obese, no acute distress
HEENT: Normocephalic, Atraumatic, EOMI, MMM
Respiratory: Clear to Auscultation bilaterally
Cardiac: Normal S1/S2, Regular Rate and Rhythm
GI: Soft, Nontender, Nondistended, Normal Bowel Sounds
Extremities: No Clubbing, Cyanosis, or Edema
Neuro: Nonfocal/Grossly Intact
Psych: Calm, Cooperative
Derm: No Visible lesions
Anticipated Discharge: Within 24 hours
Subjective/Interval History
-
Date of Service: January 27, 2025
Patient reports feeling better. No dysuria. Burgess was removed, and she has been able to void. She has intermittent left flank pain, improved from prior. She is constipated. No fever, no vomiting.
Objective Data
-
Labs:
Laboratory Results
01/27/25
06:37
WBC Pending
Hgb Pending
Hct Pending
Plt Count Pending
Sodium Pending
Potassium Pending
Chloride Pending
Carbon Dioxide Pending
BUN Pending
Creatinine Pending
Glucose Pending
Calcium Pending
Vital Signs:
Vital Signs
Temp Pulse Resp BP Pulse Ox
98.6 F 94 24 132/71 93
01/27/25 03:33 01/27/25 03:33 01/27/25 03:33 01/27/25 03:33 01/27/25 03:33
I&O
01/26/25 01/27/25 01/28/25
06:59 06:59 06:59
Intake Total 2990.1 / 3540.1 1130 / 1130
Output Total 2700 / 2700 2375 / 2375
Balance 290.1 / 840.1 -1245 / -1245
[2025-01-27 07:43] LABS: Hematocrit 39.9 % (37.0-47.0); Hemoglobin 12.7 g/dL (12.0-16.0); Mean Corp Hgb Conc. 31.8 g/dL (33.0-37.0); Mean Corpuscular Hgb 29.3 pg (27.0-31.0); Mean Corpuscular Volume 92.1 fL (81.0-99.0); Platelet Count 289 10^3/uL (130-400); Red Blood Cell Count 4.33 10^6/uL (4.20-5.40); Red Cell Dist. Width 14.8 % (11.5-14.5); White Blood Cell Count 14.9 10^3/uL (4.8-10.8)
[2025-01-27] MEDS: DUONEB 3 ML INH ×3 (08:12→20:14)
[2025-01-27] MEDS: SYMBICORT 160/4.5 MCG INHALER 2 PUFF INH ×2 (08:12→20:14)
[2025-01-27] MEDS: MUCINEX 1200 MG PO ×2 (09:15→20:38)
[2025-01-27] MEDS: NICODERM TRANSDERMAL 7 MG TRANSDERM (09:15)
--- NOTE | 2025-01-27 09:29 | W.PN.URO.CBU ---
Today's Communication / Plan
-
continue pulm therapy
awaiting final cx results
eventual outpt f/u to schedule stone procedure
Assessment / Plan
-
obstructing left ureteral stone and sepsis
out of ICU
continues pulm therapy
fevers resolved- wbc slowing declining
cx gram neg rods
urologically- await final ucx - would rec total two week course of antibx when discharged
Diagnosis
-
Date of Service: January 27, 2025
-
Patient Diagnosis:
obstructing left ureteral stone and sepsis
Post Op Day:
left ureteral stent 01/24
Subjective
-
pt out of ICU
still on oxygen and breathing treatments
downs out voiding
blood urine negative to date
ucx- gram negative rods- on rocephin
Objective
-
Vital Signs
Temp Pulse Resp BP Pulse Ox
98.8 F 87 20 138/74 94
01/27/25 07:10 01/27/25 08:15 01/27/25 08:15 01/27/25 07:10 01/27/25 08:15
Intake and Output
01/26/25 01/27/25 01/28/25
06:59 06:59 06:59
Intake Total 2990.1 / 3540.1 1130 / 1130
Output Total 2700 / 2700 2375 / 2375
Balance 290.1 / 840.1 -1245 / -1245
Intake:
Oral fluids 450 / 900 930 / 930
IV fluids (Total) 2490.1 / 2590.1 200 / 200
Diprivan 40.6 / 40.6
Fentanyl 12.5 / 12.5
Norepi 37.0 / 37.0
Nss 1,000 ml @ 100 mls/hr IV . 2400 / 2500 200 / 200
Q10H ZOYA Rx#:[id number]
IV piggybacks 50 / 50
Output:
Urine, Downs 1850 / 1850 2300 / 2300
Urine, Voided 850 / 850 75 / 75
Other:
Number of approximated SMALL 1
amounts of urine
Laboratory Results
01/27/25 06:37
Review of Systems
-
Constitutional: Fatigue
Respiratory: Cough and Trouble Breathing
Cardiac: No Symptoms
Abdomen/GI: No Symptoms
: Frequency
Physical Exam
-
General - no acute distress
[2025-01-27 10:11] LABS: Blood Urea Nitrogen 18 mg/dl (7-17); Calcium 9.4 mg/dl (8.4-10.2); Carbon Dioxide 21 mmol/L (22-30); Chloride 104 mmol/L (98-107); Estimated Creatinine Clearance 51 ml/min; Glucose 93 mg/dl (70-99); Sodium 137 mmol/L (135-145); eGFR 54.06
[2025-01-27 11:00] VITALS: BP 139/86
[2025-01-27] MEDS: CITROMA 300 ML PO (12:43)
[2025-01-27 15:00] VITALS: BP 137/76
[2025-01-27] MEDS: LOVENOX 30 MG SC (17:38)
[2025-01-27] MEDS: STERILE WATER FOR INJECTION 10 ML IV (20:38)
[2025-01-27] MEDS: ROCEPHIN 1000 MG IV (20:38)
[2025-01-27] MEDS: FLUSH (NSS) 2 FLUSH IV (20:38)
[2025-01-27] MEDS: TUMS CHEWABLE TABLET 200 MG PO (20:55)
[2025-01-27 23:15] VITALS: BP 141/74
[2025-01-28 07:30] LABS: Hematocrit 40.5 % (37.0-47.0); Hemoglobin 12.7 g/dL (12.0-16.0); Mean Corp Hgb Conc. 31.4 g/dL (33.0-37.0); Mean Corpuscular Hgb 29.3 pg (27.0-31.0); Mean Corpuscular Volume 93.3 fL (81.0-99.0); Mean Platelet Volume 10.9 fL (7.4-10.4); Platelet Count 324 10^3/uL (130-400); Red Blood Cell Count 4.34 10^6/uL (4.20-5.40); Red Cell Dist. Width 14.7 % (11.5-14.5); White Blood Cell Count 12.2 10^3/uL (4.8-10.8)
[2025-01-28 07:43] VITALS: BP 146/82
[2025-01-28] MEDS: DUONEB 3 ML INH (07:59)
[2025-01-28] MEDS: SYMBICORT 160/4.5 MCG INHALER 2 PUFF INH (07:59)
--- NOTE | 2025-01-28 08:33 | W.PN.HOSP.TC ---
Today's Communication/Plan
-
Discharge today
Assessment / Plan
Assessment / Plan
HPI: 69-year-old female past medical history of hypertension, COPD, active smoker, presenting with left-sided flank pain, chills, low-grade fever, urinary frequency over the past 5 days. No blood in the urine. No nausea or vomiting. Pain got
particularly severe today.
#Acute left ureterolithiasis with obstruction
#Sepsis secondary to acute left pyelonephritis
Appreciate urology input, status post cystoscopy with left ureteral stent placement 01/24
Urine cultures growing E. coli and Proteus, E. coli sensitivities reviewed
Resolving on Rocephin, medically stable for discharge on cefdinir to complete a 14-day course
Burgess removed 01/27, patient has been voiding
Follow-up with urology in the office in 1-2 weeks for definitive stone management
#Constipation
Continue laxatives upon discharge
#Unable to extubate postoperatively
Appreciate mounter hand input, extubated 01/25
Patient likely has undiagnosed COPD, KATELYN, and possibly OHS
Currently requiring 2 L of oxygen, wean as tolerated
Continue bronchodilators, follow-up with pulmonology in the office for PFTs and sleep study
#Acute kidney injury
Resolving
#Glucose intolerance
Hemoglobin A1c 5.9, recommend dietary modification
Patient has been informed of her diagnosis a few weeks ago by her PCP
#Cigarette nicotine dependency
Nicotine patch
#Essential hypertension
Resume home blood pressure medications
#Hyperlipidemia
Resumed statin
#Obesity due to excess calories
Affects all aspects of care
DVT prophylaxis�subcu Lovenox
Full code
Physical Exam
General: Obese, no acute distress
HEENT: Normocephalic, Atraumatic, EOMI, MMM
Respiratory: Clear to Auscultation bilaterally
Cardiac: Normal S1/S2, Regular Rate and Rhythm
GI: Soft, Nontender, Nondistended, Normal Bowel Sounds
Extremities: No Clubbing, Cyanosis, or Edema
Neuro: Nonfocal/Grossly Intact
Psych: Calm, Cooperative
Derm: No Visible lesions
Anticipated Discharge: Today
Subjective/Interval History
-
Date of Service: January 28, 2025
Patient did not have a bowel movement. She reports feeling slight discomfort in her left flank every so often. No dysuria. No fever, no vomiting. She is eager for discharge.
Objective Data
-
Labs:
Laboratory Results
01/28/25
06:42
WBC 12.2 H
Hgb 12.7
Hct 40.5
Plt Count 324
Sodium Pending
Potassium Pending
Chloride Pending
Carbon Dioxide Pending
BUN Pending
Creatinine Pending
Glucose Pending
Calcium Pending
Vital Signs:
Vital Signs
Temp Pulse Resp BP Pulse Ox
98.4 F 62 18 146/82 94
01/28/25 07:43 01/28/25 08:04 01/28/25 08:04 01/28/25 07:43 01/28/25 08:04
I&O
01/27/25 01/28/25 01/29/25
06:59 06:59 06:59
Intake Total 1130 / 1130 1740 / 1740
Output Total 2375 / 2375
Balance -1245 / -1245 1740 / 1740
[2025-01-28 09:06] LABS: Blood Urea Nitrogen 19 mg/dl (7-17); Calcium 9.8 mg/dl (8.4-10.2); Carbon Dioxide 25 mmol/L (22-30); Chloride 105 mmol/L (98-107); Estimated Creatinine Clearance 56 ml/min; Glucose 94 mg/dl (70-99); Potassium 4.2 mmol/L (3.5-5.1); Sodium 137 mmol/L (135-145); eGFR > 60.00
[2025-01-28] MEDS: OMNICEF 300 MG PO (09:14)
[2025-01-28] MEDS: MUCINEX 1200 MG PO (09:14)
[2025-01-28] MEDS: MIRALAX 17 GRAMS PO (09:14)
[2025-01-28] MEDS: NICODERM TRANSDERMAL 7 MG TRANSDERM (09:16)
[2025-01-28] MEDS: TYLENOL 650 MG PO (09:37)
--- NOTE | 2025-01-28 09:55 | W.DCSUMMARY ---
Discharge Summary
Discharge Data
Date of Admission: 01/24/25
Date of Discharge: 01/28/25
-
Pending Results: No
Hospital Course
Discharge diagnosis:
Acute left ureterolithiasis with obstruction
Sepsis secondary to acute left pyelonephritis
Unable to extubate postoperatively
Suspected chronic obstructive pulmonary disease
Probable obstructive sleep apnea
Cigarette nicotine dependency
Acute kidney injury
Constipation
Glucose intolerance
Essential hypertension
Hyperlipidemia
Obesity due to excess calories
Consults: Neurology, drafter tool design
CT abd/pelvis:
1. MODERATE ACUTE LEFT HYDRONEPHROSIS secondary to a large 1.5 cm obstructing calculus in the left ureteropelvic junction. Severe left perinephric inflammation.
2. Mild to moderate right perinephric edema. 1.0 cm mass in the posterior cortex of the midpole of the right kidney which could be a complex cyst or small renal cell carcinoma.
3. Severe calcific atherosclerotic plaque in the abdominal aorta.
4. Mild splenomegaly.
5. Moderate-sized paraesophageal hiatal hernia.
6. Mild colonic diverticulosis.
7. Severe multilevel lumbar facet joint arthrosis.
Procedures:
01/24/2025 cystoscopy with left ureteral stent placement, roge pus
Hospital course:
69-year-old female with a past medical history of obesity, cigarette nicotine dependency, hyperlipidemia, hypertension, and glucose intolerance was admitted for sepsis secondary to acute left pyelonephritis and acute left ureterolithiasis with
obstruction. Patient was treated with IV Rocephin. She was seen in conjunction with urology, and had cystoscopy with left ureteral stent placement yielding roge pus. She was not able to be extubated postoperatively. She smokes cigarettes, and
likely has undiagnosed COPD and obstructive sleep apnea. She was seen in conjunction with the drafter tool design, and started on bronchodilators. She was extubated. Cigarette nicotine dependency counseling has been provided.
Urine cultures grew out E. coli and Proteus, sensitive to Rocephin. Patient is medically stable and cleared by urology for discharge on cefdinir to complete a 14-day course. She needs to follow-up with urology in the office for definitive stone
management, and pulmonology in the office for PFTs. She also needs to follow-up with her primary care doctor in 1 week.
Disposition: Home self-care
Discharge planning: Required 47 minutes
Discharge Plan
-
Patient Disposition: Home (Routine Discharge)
Discharge Diagnosis/Procedures: Acute left ureterolithiasis with obstruction
Sepsis secondary to acute left pyelonephritis
Acute kidney injury
Probable chronic obstructive pulmonary disease
Suspected obstructive sleep apnea
Constipation
Glucose intolerance
Cigarette nicotine dependency
Obesity due to excess calories
Hypertension
Condition: Good
Diet: Low Fat, Low Cholesterol and Diabetic, Carb Controlled
Activity: As tolerated
Driving Restrictions: As prior to admission
Activity Restrictions/Additional Instructions:
Follow-up with urology in the office in 1-2 weeks for definitive stone management.
Follow-up with pulmonology in the office for outpatient pulmonary function test.
Recommend you permanently abstain from cigarette smoking.
Follow-up with your primary care doctor in 1 week.
Referrals:
Anatoly Lei MD [Active] - in three to four weeks (full PFTs on day of office visit)
Petrona Costa MD [Family Provider] - in one week
Roge Benitez Jr., MD [Active] - in one to two weeks
Prescriptions:
New
ipratropium-albuterol 0.5 mg-3 mg(2.5 mg base)/3 mL Solution For Nebulization
3 ml inhalation R Q4HPRN PRN (Reason: wheeze/cough) Qty: 90 0RF
cefdinir 300 mg Capsule
300 mg PO Q12 10 Days Qty: 20 0RF
nicotine 7 mg/24 hr Patch 24 Hour
7 mg transdermal DAILY Qty: 230 0RF
Continued
olmesartan-hydrochlorothiazide 40-25 mg tablet
1 tab PO DAILY
rosuvastatin 10 mg tablet
10 mg PO HS
fluticasone furoate-vilanterol [Breo Ellipta] 200-25 mcg/dose blister with device
1 inh INHALATION DAILY
Discharge Orders:
Discharge Patient (As Directed); Ordered 01/28/25
Ordered By: Keanu Salcedo
Discharge Date and Time
Discharge Date/Time: 01/28/25 13:40
Print Language: CITIZEN OF [place]
[2025-01-28] MEDS: KCL 10 MEQ PO (10:07)
[2025-01-28] MEDS: LASIX 60 MG IV (10:07)
[2025-01-28] MEDS: BENICAR 20 MG PO (10:07)
--- NOTE | 2025-01-28 11:06 | CM ---
Chart reviewed and plan is for patient to return to home today patient has Nebulizer and scripts for medications provided.
Plan; Home today, IMM completed.
[2025-01-28 13:29] VITALS: BP 122/78
--- NOTE | 2025-01-28 13:36 | PTCARENOTE ---
Discharge order written. Instructions reviewed with patient. Paper script provided for Nebulizer. IV site removed. Pt escorted out to daughter's car via wheelchair.
== END 2025-01-28 13:40 | disposition home or self-care (01) | DRG 853 ==
LOC: 1 ACUTE 20:43
PROVIDERS: Emergency Medicine; Nurse Practitioner Family; ADMITTING PHYSICIAN Hospitalist; ATTENDING PHYSICIAN Family Medicine; CONSULT PHYSICIAN Specialist; EMERGENCY PHYSICIAN Emergency Medicine; FAMILY PHYSICIAN Family Medicine; OTHER PHYSICIAN Internal Medicine Critical Care Medicine
PROC: 5A1935Z Respiratory Ventilation, Less than 24 Consecutive Hours (ICD-10-PCS; 2025-01-24)
PROC: 0T778DZ Dilation of Left Ureter with Intraluminal Device, Via Natural or Artificial Opening Endoscopic (ICD-10-PCS; 2025-01-24)
PROC: 5A09357 Assistance with Respiratory Ventilation, Less than 24 Consecutive Hours, Continuous Positive Airway Pressure (ICD-10-PCS; 2025-01-25)
DX: A41.9 Sepsis, unspecified organism (principal); J96.01 Acute respiratory failure with hypoxia; R65.21 Severe sepsis with septic shock; N13.6 Pyonephrosis; E87.1 Hypo-osmolality and hyponatremia; E87.20 Acidosis, unspecified; N17.9 Acute kidney failure, unspecified; F17.210 Nicotine dependence, cigarettes, uncomplicated; I10 Essential (primary) hypertension; J44.89 Other specified chronic obstructive pulmonary disease; N28.89 Other specified disorders of kidney and ureter; K59.00 Constipation, unspecified; E66.09 Other obesity due to excess calories; E83.42 Hypomagnesemia; Z68.38 Body mass index [BMI] 38.0-38.9, adult; Z11.52 Encounter for screening for COVID-19; Z60.2 Problems related to living alone
CPT/HCPCS: 36600; 71045; 74018; 74176; 76000; 80048; 80053; 81003; 81015; 82805; 82962; 83036; 83605; 83690; 83735; 84100; 84478; 85025; 85027; 85610; 85730; 87040; 87077; 87086; 87088; 87186; 87502; 87811; 93005; 94002; 94640; 94660; 96374; 96375; 96376; 97162; 99291; 99406; A4300; C2617

== ENCOUNTER 2025-02-25 06:22 | Day surgery (SDC) | payer MEDICARE, OTHER, SELFPAY ==
--- NOTE | 2025-02-18 14:52 | PTCARENOTE ---
patients 01/25 CXR abnormal- reviewed by Dr. Price- no additional interventions required.
[2025-02-25] VITALS (8 sets, daily range): BP systolic 100–127; BP diastolic 58–67; BMI 35.5
[2025-02-25] MEDS: Pyridium 200 MG PO (11:51)
== END 2025-02-25 12:46 | disposition home or self-care (01) ==
LOC: SDS 06:22
PROVIDERS: ATTENDING PHYSICIAN Specialist
DX: N20.1 Calculus of ureter (principal)
CPT/HCPCS: 52356; 74018; 76000; 82365; C1758; C1894; C2617

== ENCOUNTER → 2025-07-20 07:35 | Outpatient (REF) | payer MEDICARE, OTHER, SELFPAY | LOC: PAVMRI 07:35 | PROVIDERS: ATTENDING PHYSICIAN Specialist; FAMILY PHYSICIAN Family Medicine | DX: D49.511 Neoplasm of unspecified behavior of right kidney (principal) | CPT/HCPCS: 74183; A9575 ==